=== PATIENT | male | born 1950 | race Caucasian/White ===

== ENCOUNTER 2017-05-31 14:42 | Emergency (ER) | payer OTHER ==
[2017-05-31 14:56] VITALS: TEMP 98.4
--- NOTE | 2017-05-31 16:56 | EDPHY ---
H & P Time Seen by Provider: 05/31/17 16:25 HPI/ROS: CHIEF COMPLAINT: Subungual hematoma HISTORY OF PRESENT ILLNESS: 66-year-old male presents emergency department complaining of right thumb pain. Patient shot his thumb in a car door 48 hours ago. He has a bruise under his fingernail and pressure in his thumb. He denies numbness or tingling in his thumb, no other complaints. Patient is right- hand-dominant. Smoking Status: Never smoked Physical Exam: GEN: Awake, alert, oriented, no acute distress RESP: nl resp effort MSK: Full active range of motion of right thumb, sensation intact to light touch, cap refill less than 2 seconds, subungual hematoma SKIN: No break in skin Constitutional: Initial Vital Signs Temperature (C) 36.9 C 05/31/17 14:52 Heart Rate 75 05/31/17 14:52 Respiratory Rate 18 05/31/17 14:52 Blood Pressure 163/111 H 05/31/17 14:52 O2 Sat (%) 95 05/31/17 14:52 O2 Delivery Mode Room Air Allergies/Adverse Reactions: No Known Allergies Allergy (Verified 05/31/17 14:56) Home Medications: Medication Instructions Recorded Aspirin [Aspir 81] 81 mg PO DAILY 06/07/13 Rosuvastatin Calcium [Crestor 20mg 20 mg PO DAILY 06/07/13 (RX)] Nitroglycerin [Nitrostat] 0.4 mg SL PRN PRN #10 bottle 01/17/15 MDM/Departure - MDM Imaging Results: Imaging Impressions Finger X-Ray 05/31/17 16:25 Impression: There is no acute osseous abnormality identified. Procedures: Subungual hematoma drainage- Fingernail cleaned with chlorhexidine. Fingernail was trephinated cautery, bright red blood in return. Patient had immediate relief - Depart Disposition: Home, Routine, Self-Care Clinical Impression: Hematoma, subungual, thumb, right Qualifiers: Encounter type: initial encounter Qualified Code(s): S60.111A - Contusion of right thumb with damage to nail, initial encounter Condition: Good Instructions: Subungual Hematoma (ED) Additional Instructions: Place Band-Aid, do not put any ointment on your finger. Keep allowing this to drain. Return to the emergency department for any signs of infection, increased pain, fevers. Referrals: Arik Lacy MD [Primary Care Provider] - Follow Up Only If Needed
[2017-05-31 18:16] VITALS: BP 173/111; PULSE 72; RESP 16; O2SAT 94
== END 2017-05-31 17:38 | disposition home or self-care (01) ==
PROC: 0H9QXZZ Drainage of Finger Nail, External Approach (ICD-10-PCS; principal; 2017-05-31)
DX: S60.111A Contusion of right thumb with damage to nail, initial encounter (principal); I10 Essential (primary) hypertension; Z79.82 Long term (current) use of aspirin; W23.1XXA Caught, crushed, jammed, or pinched between stationary objects, initial encounter

== ENCOUNTER 2019-04-17 11:27 | Observation (INO) | payer OTHER, MEDICARE | END 2019-04-17 17:44 | disposition home or self-care (01) ==